=== PATIENT | female | born 1960 | race Two or more races ===

== ENCOUNTER 2021-08-23 07:00 | Day surgery (SDC) | payer OTHER ==
[~2021-08-23 07:00] MED LIST: GRALISE600 MG PO; SYNTHROID100 MCG PO
[2021-08-23] MEDS ORDERED: PERCOCET 5-3251 EACH PO (10:25)
== END 2021-08-23 14:30 | disposition home or self-care (01) ==
LOC: CIR.AMB 07:00
PROVIDERS: ATTEND Surgery
DX: C17.9 Malignant neoplasm of small intestine, unspecified (principal); E03.9 Hypothyroidism, unspecified; G62.89 Other specified polyneuropathies; Z20.822 Contact with and (suspected) exposure to COVID-19